=== PATIENT | male | born 1970 | race African-American/Black ===

== ENCOUNTER → 2021-05-04 02:55 | Outpatient (CLI) | payer OTHER, SELFPAY ==
[2021-05-04 18:57] LABS: SARS-CoV-2 RNA PCR Negative
== END ==
PROVIDERS: PCP Family Medicine; Visit Provider Internal Medicine Gastroenterology
DX: Z20.822 Contact with and (suspected) exposure to COVID-19 (principal)
CPT/HCPCS: C9803; U0003; U0005

== ENCOUNTER 2021-05-07 01:24 | Day surgery (SDC) | payer OTHER, SELFPAY ==
[2021-05-03 09:59] VITALS: BMI 24.8
--- NOTE | 2021-05-04 14:24 | PM.HPGS ---
History of Present Illness History of Present Illness Consent: Risks, benefits, and alternatives have been discussed and questions answered. Patient agrees to proceed with procedure. Chief complaint: hx of colon ca, neoplasm Narrative: Vazquez Tomlinson is a 51 year old male with a history of colon cancer diagnosed 2 years ago. Recently he has had severe diarrhea this is a daily occurrence for the past 2 or 3 months. About 6 months ago he began having pain in the left lower back that also involves his left lower abdomen. It is much worse when he moves, such as when he tried turning in bed to show me the source in the back. Review of Systems Review of Systems: All systems reviewed & are unremarkable except as noted in HPI and below PMFSH Past Medical History Medical History ADHD Colon cancer Smoker Social History Social History Smoking status: Light tobacco smoker Tobacco type: cigars Substance use: never Substance use type: does not use Living arrangements: with family Spiritual care concerns: No Meds Home Medications and Allergies Home Medications Medication Instructions Recorded Confirmed Type methylphenidate HCl 20 mg PO BID 05/03/21 05/03/21 History modafinil 200 mg PO DAILY 05/03/21 05/03/21 History Allergies Allergy/AdvReac Type Severity Reaction Status Date / Time No Known Allergies Allergy Verified 05/07/21 12:29 Exam Resp: Auscultation: clear to auscultation bilaterally Cardio: Rate: regular rate Rhythm: regular rhythm GI: GI Palp: Yes Soft to palpation and No Tenderness to palpation present (GI) Assessment and Plan Assessment and plan (1) Colon cancer screening: Code(s): Z12.11 - Encounter for screening for malignant neoplasm of colon Status: Acute Assessment and Plan: Colonoscopy with possible biopsy or polypectomy or cautery or injection of substances.
--- NOTE | 2021-05-07 10:58 | WPDANESEPPF ---
Anes - Initial Pre Proc Eval Procedure: Operation Date: 05/07/21 13:30 Proposed Procedures p Screening Colonoscopy - Reinaldo Morataya MD Date/Time: 05/07/21 10:58 Surgeon: Reinaldo Morataya MD Pre Op Diagnosis: hx of colon ca, neoplasm Patient Data Age: 51 Gender: M Height: 1.78 m Weight: 78.5 kg Allergies Allergy/AdvReac Type Severity Reaction Status Date / Time No Known Allergies Allergy Verified 05/07/21 12:29 Home Medications Medication Instructions Recorded Confirmed Type methylphenidate HCl 20 mg PO BID 05/03/21 05/03/21 History modafinil 200 mg PO DAILY 05/03/21 05/03/21 History Patient hx anesthesia problems: none Family hx anesthesia problems: none [facility] Past Medical History Medical History ADHD Colon cancer Smoker Social History Social History Smoking status: Light tobacco smoker Tobacco type: cigars Substance use: never Substance use type: does not use Living arrangements: with family Spiritual care concerns: No Anes - Eval Final PreProcedure Day of Procedure 05/07/21 10:58 Patient weight: normal Heart: regular rate and rhythm Lungs: clear to auscultation and normal air movement Airway: Mallampati scale class II Neurological: alert and oriented Last oral intake: >/= 8 hours ASA classification: III Emergent: no Anesthetic plan: proceed Anesthesia type and monitoring: general GIVS Informed Consent: The patient's anesthetic plan and its attendant risks and benefits were discussed with the patient/family/POA. Questions were solicited and answers provided to the satisfaction of the patient/family/POA.
[2021-05-07] MEDS: LACTATED RINGERS 1,000 ML 150 ML IV CONT (12:33)
--- NOTE | 2021-05-07 12:41 | P.PNAN_ITS ---
Anes - Initial Pre Proc Eval Procedure: Operation Date: 05/07/21 13:30 Proposed Procedures p Screening Colonoscopy - Reinaldo Morataya MD Date/Time: 05/07/21 12:41 Surgeon: Reinaldo Morataya MD Pre Op Diagnosis: hx of colon ca, neoplasm Patient Data Age: 51 Gender: M Height: 1.78 m Weight: 78.5 kg Allergies Allergy/AdvReac Type Severity Reaction Status Date / Time No Known Allergies Allergy Verified 05/07/21 12:29 Home Medications Medication Instructions Recorded Confirmed Type methylphenidate HCl 20 mg PO BID 05/03/21 05/03/21 History modafinil 200 mg PO DAILY 05/03/21 05/03/21 History Patient hx anesthesia problems: none Family hx anesthesia problems: none [facility] Past Medical History Medical History ADHD Colon cancer Smoker Social History Social History Smoking status: Light tobacco smoker Tobacco type: cigars Substance use: never Substance use type: does not use Living arrangements: with family Spiritual care concerns: No Anes - Eval Final PreProcedure Day of Procedure 05/07/21 12:41 Patient weight: normal Heart: regular rate and rhythm Lungs: clear to auscultation Airway: Mallampati scale class II Last oral intake: >/= 8 hours ASA classification: III Emergent: no Anesthetic plan: proceed Anesthesia type and monitoring: general GIVS and standard monitoring Informed Consent: The patient's anesthetic plan and its attendant risks and benefits were discussed with the patient/family/POA. Questions were solicited and answers provided to the satisfaction of the patient/family/POA.
[2021-05-07 12:46] VITALS: BP 114/67; PULSE 73; RESP 16; TEMP 36.8; O2SAT 100; BMI 23.7
[2021-05-07 13:23] VITALS: BP 88/45; PULSE 85; RESP 19; O2SAT 98
[2021-05-07 13:33] VITALS: BP 107/70; PULSE 88; RESP 16; O2SAT 100
[2021-05-07 13:43] VITALS: BP 103/59; PULSE 74; RESP 17; O2SAT 100
== END 2021-05-07 13:52 | disposition home or self-care (01) ==
PROVIDERS: PCP Family Medicine; Visit Provider Internal Medicine Gastroenterology
PROC: 0DJD8ZZ Inspection of Lower Intestinal Tract, Via Natural or Artificial Opening Endoscopic (ICD-10-PCS; CPT 45378; principal; 2021-05-07 13:30)
DX: K59.1 Functional diarrhea (principal); Z98.0 Intestinal bypass and anastomosis status; Z85.038 Personal history of other malignant neoplasm of large intestine; K52.89 Other specified noninfective gastroenteritis and colitis; F90.9 Attention-deficit hyperactivity disorder, unspecified type; F17.210 Nicotine dependence, cigarettes, uncomplicated
CPT/HCPCS: 45380; 88305; J2704; J7120

== ENCOUNTER 2021-05-09 18:33 | Emergency (ER) | payer OTHER, SELFPAY ==
--- NOTE | ~2021-05-09 | XR_ITS ---
XR chest 2V DATE: 05/09/2021 19:28 INDICATION: Pain down left arm for one day. Smoker. History of colon cancer and lung surgery. TECHNIQUE: PA and lateral views COMPARISON: 02/05/2016 PA and lateral chest FINDINGS: Surgical clips are noted in the lower medial right thorax. Normal heart size. No hilar or mediastinal enlargement. No pulmonary infiltrate or consolidation, pleural effusion or pulmonary vascular congestion or pneumo thorax is detected. IMPRESSION: No active cardiac pulmonary disease or significant change since 02/05/2016 Reviewed, dictated and finalized at location A. IMPRESSION: No active cardiac pulmonary disease or significant change since 01/23
[2021-05-09 18:43] VITALS: BP 151/83; PULSE 69; RESP 17; TEMP 36.8; O2SAT 100
--- NOTE | 2021-05-09 18:43 | ECG_ITS ---
Measurements Intervals [place] Rate: 65 P: 59 [place]: 156 QRS: 68 QRSD: 96 T: 55 QT: 369 QTc: 384 Interpretive Statements SINUS RHYTHM WITH SINUS ARRHYTHMIA NORMAL ECG Electronically Signed On 05-09-2021 20:15:24 CDT by eVrn Best D.O.
[2021-05-09 19:12] LABS: Basophils Percent Auto 0.2 % (0.2-1.2); Eosinophils Absolute Auto 0.1 K/mm3 (0-0.3); Eosinophils Percent Auto 2.2 % (0-4.4); Hematocrit 33.1 % (42.0-52.0); Hemoglobin 10.2 g/dL (14.0-18.0); Immature Granulocyte Absolute 0.01 K/mm3 (0.00-0.031); Immature Granulocyte Percent A 0.2 % (0-0.5); Immature Platelet Fraction Pct 10.7 % (0.9-11.2); Lymphocytes Absolute Auto 1.77 K/mm3 (0.9-3.2); Lymphocytes Percent Auto 38.8 % (18.3-44.2); Mean Corpuscular HGB Conc 30.8 g/dl (32-36); Mean Corpuscular Hemoglobin 27.7 pg (26-34); Mean Corpuscular Volume 89.9 fl (80-100); Mean Platelet Volume 12.9 fl (7.4-10.4); Monocytes Absolute Auto 0.3 K/mm3 (0.1-0.6); Monocytes Percent Auto 6.8 % (2.6-8.5); Neutrophils Absolute Auto 2.4 K/mm3 (1.3-6.7); Neutrophils Percent Auto 51.8 % (45.5-73.1); Platelet Count Result 152 k/mm3 (150-375); Red Blood Count 3.68 M/mm3 (4.6-6.20); Red Cell Distribution Width 17.2 % (11.5-14.5); White Blood Count 4.6 K/mm3 (4.5-10.0)
[2021-05-09 19:20] LABS: Prothrombin Time 13.5 Seconds (11.1-14.7)
[2021-05-09 19:21] LABS: Partial Thromboplastin Time 33.2 SECONDS (22.3-36.8)
[2021-05-09 19:22] LABS: Anion Gap 10 mmol/L (8-16); Blood Urea Nitrogen 9 mg/dL (9-20); Calcium 9.2 mg/dL (8.4-10.2); Carbon Dioxide 24 mmol/L (22-30); Chloride 101 mmol/L (98-107); Estimated CRCL calculation 128 ml/min; Estimated Glomerular Filt Rate > 60; Glucose 119 mg/dL (65-110); Potassium 4.2 mmol/L (3.4-5.0); Sodium 135 mmol/L (137-145)
[2021-05-09 19:34] LABS: Troponin I < 0.012 ng/mL (0.000-0.034)
[2021-05-09] MEDS: HYDROcodone/acetaminophen (*CRX) 5-325 MG TABLET 1 TAB PO (22:59)
[2021-05-09 23:09] LABS: Troponin I < 0.012 ng/mL (0.000-0.034)
--- NOTE | 2021-05-09 23:39 | ED.GENADULT ---
HPI - General Adult General Chief complaint: Extremity Injury, Upper Stated complaint: left shoulder pain Time Seen by Provider: 05/09/21 21:58 Source: patient and family Mode of arrival: ambulatory Limitations: no limitations History of Present Illness HPI narrative: 51-year-old with no major medical problems here with complaints of left upper neck and left arm pain radiating into his left forearm for past few days he denies any trauma. 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 He denies any lifting heavy objects. He denies any chest pain or shortness of breath. Onset (ago): day(s) (2) Location: upper extremity (Left upper extremity) Radiation: neck Severity: moderate Quality: aching Pain Consistency: constant Relieving factors: none Exacerbating factors: movement Associated symptoms: denies other symptoms Related Data Home Medications Medication Instructions Recorded Confirmed methylphenidate HCl 20 mg PO BID 05/03/21 05/03/21 modafinil 200 mg PO DAILY 05/03/21 05/03/21 Allergies Allergy/AdvReac Type Severity Reaction Status Date / Time No Known Allergies Allergy Verified 05/09/21 22:19 Review of Systems Review of Systems: All systems reviewed & are unremarkable except as noted in HPI and below Constitutional: Constitutional: Reports no additional constitutional complaints Eyes: Eyes: Reports no additional eye complaints ENT: Reports system reviewed and no additional complaints, except as documented Cardiovascular: Cardiovascular: Reports no additional cardiovascular complaints Respiratory: Respiratory: Reports no additional respiratory complaints Gastrointestinal: Gastrointestinal: Reports no additional gastrointestinal complaints Musculoskeletal: Musculoskeletal: Reports as per HPI Integumentary/Breasts: Skin/Breast: Reports system reviewed and no additional complaints, except as docu PMFSH Past Medical History Medical History ADHD Colon cancer Smoker Social History Social History Smoking status: Light tobacco smoker Tobacco type: cigars Substance use: never Substance use type: does not use Spiritual care concerns: No Exam Narrative: GENERAL: Well-appearing, well-nourished, and in no acute distress. HEAD: Normocephalic, atraumatic. EYES: PERRLA and EOMI. NECK: Supple. CHEST: Clear to auscultation. No respiratory distress. HEART: Regular rate and rhythm. No murmur heard. Normal peripheral pulses. ABDOMEN: Soft, nontender, nondistended, normal active bowel sounds. EXTREMITIES: Normal range of motion. No edema. Painful range of motion in the left shoulder. He has significant tenderness in the left trapezius area. SKIN: Warm, dry, no rash. NEURO: No focal deficits. Alert and oriented x3. PSYCH: Normal mood and affect. Course Course Emergency Course: Patient states his pain is much resolved after the pain medication. I informed him about his lab work, EKG and chest x-ray findings. At this time his pain is most likely musculoskeletal. Advised him to follow-up with his primary doctor. Vital Signs Vital signs: Vital Signs Temperature 36.8 C 05/09/21 18:43 Pulse Rate 69 05/09/21 18:43 Respiratory Rate 17 05/09/21 18:43 Blood Pressure 151/83 H 05/09/21 18:43 Pulse Oximetry 100 05/09/21 18:43 Temperature 36.8 C 05/09/21 18:43 Pulse Rate 69 05/09/21 18:43 Respiratory Rate 17 05/09/21 18:43 Blood Pressure 151/83 H 05/09/21 18:43 Pulse Oximetry 100 05/09/21 18:43 Medical Decision Making Vital Signs Vital Signs: Vital Signs Temperature 36.8 C 05/09/21 18:43 Pulse Rate 69 05/09/21 18:43 Respiratory Rate 17 05/09/21 18:43 Blood Pressure 151/83 H 05/09/21 18:43 Pulse Oximetry 100 05/09/21 18:43 Temperature 36.8 C 05/09/21 18:43 Pulse Rate 69 05/09/21 18:43 Respiratory Rate 17 05/09/21 18:43 Blood Pressure 151/83 H 05/09/21 18:43 Pulse Oximetry 100
[2021-05-10 00:12] VITALS: BP 150/85; PULSE 80; RESP 16; O2SAT 100
== END 2021-05-10 00:08 | disposition home or self-care (01) ==
PROVIDERS: Emergency Medicine; Emergency Provider Family Medicine; PCP Family Medicine
DX: M54.10 Radiculopathy, site unspecified (principal); F90.9 Attention-deficit hyperactivity disorder, unspecified type; Z85.038 Personal history of other malignant neoplasm of large intestine; F17.290 Nicotine dependence, other tobacco product, uncomplicated
CPT/HCPCS: 36415; 71046; 80048; 84484; 85025; 85055; 85610; 85730; 93005; 99284; A9270

== ENCOUNTER 2021-05-22 19:49 | Emergency (ER) | payer OTHER, SELFPAY ==
--- NOTE | 2021-05-22 19:57 | PC.NURSE ---
Call for triage, no answer.
[2021-05-22 20:21] VITALS: BP 150/70; PULSE 68; RESP 18; TEMP 37; O2SAT 100
--- NOTE | 2021-05-22 20:31 | ECG_ITS ---
Measurements Intervals [place] Rate: 59 P: 50 DE: 161 QRS: 61 QRSD: 95 T: 59 QT: 383 QTc: 382 Interpretive Statements SINUS BRADYCARDIA BORDERLINE ECG Electronically Signed On 05-23-2021 6:53:35 CDT by Vern Best D.O.
[2021-05-22 20:58] LABS: Basophils Percent Auto 0.5 % (0.2-1.2); Eosinophils Absolute Auto 0.1 K/mm3 (0-0.3); Eosinophils Percent Auto 2.7 % (0-4.4); Hematocrit 34.6 % (42.0-52.0); Hemoglobin 10.9 g/dL (14.0-18.0); Immature Granulocyte Absolute 0.01 K/mm3 (0.00-0.031); Immature Granulocyte Percent A 0.2 % (0-0.5); Immature Platelet Fraction Pct 9.2 % (0.9-11.2); Lymphocytes Absolute Auto 1.75 K/mm3 (0.9-3.2); Lymphocytes Percent Auto 42.8 % (18.3-44.2); Mean Corpuscular HGB Conc 31.5 g/dl (32-36); Mean Corpuscular Hemoglobin 28.2 pg (26-34); Mean Corpuscular Volume 89.6 fl (80-100); Mean Platelet Volume 12.9 fl (7.4-10.4); Monocytes Absolute Auto 0.3 K/mm3 (0.1-0.6); Monocytes Percent Auto 7.8 % (2.6-8.5); Neutrophils Absolute Auto 1.9 K/mm3 (1.3-6.7); Platelet Count Result 156 k/mm3 (150-375); Red Blood Count 3.86 M/mm3 (4.6-6.20); Red Cell Distribution Width 17.7 % (11.5-14.5); White Blood Count 4.1 K/mm3 (4.5-10.0)
[2021-05-22 21:10] LABS: Alanine Aminotransferase 45 U/L (4-50); Albumin Level 4.7 g/dL (3.5-5.1); Alkaline Phosphatase 84 U/L (38-126); Anion Gap 7 mmol/L (8-16); Aspartate Amino Transferase 31 U/L (17-59); Bilirubin,Total 0.3 mg/dL (0.2-1.3); Blood Urea Nitrogen 10 mg/dL (9-20); Calcium 9.3 mg/dL (8.4-10.2); Carbon Dioxide 26 mmol/L (22-30); Chloride 106 mmol/L (98-107); Estimated CRCL calculation 98 ml/min; Estimated Glomerular Filt Rate > 60; Glucose 109 mg/dL (65-110); Lipase 158 U/L (23-300); Potassium 4.3 mmol/L (3.4-5.0); Sodium 139 mmol/L (137-145)
[2021-05-22 21:20] LABS: Troponin I < 0.012 ng/mL (0.000-0.034)
[2021-05-22 21:21] LABS: Platelet Estimate Adequate (Adequate)
[2021-05-22 21:22] LABS: Anisocytosis 2+ (NORMAL); Hypochromasia 1+ (NORMAL)
[2021-05-22 21:40] LABS: Add Urine Microscopic? YES; Appearance Urine Clear (Clear); Bacteria Urine Trace /hpf; Bilirubin Urine Negative (Negative); Blood Urine Negative (Negative); Color Urine Yellow (Yellow); Glucose Urine UA Negative (Negative); Ketones Urine Negative (Negative); Leukocyte Esterase Ur Negative LEU/UL (Negative); Nitrate Urine Negative (Negative); Protein Urine Negative (Negative); Specific Grav Ur 1.017 (1.001-1.035); WBC Urine 0-3 /hpf
[2021-05-22 22:34] VITALS: BP 123/76; PULSE 56; RESP 18; O2SAT 100
--- NOTE | 2021-05-23 00:40 | ED.DIZZY ---
HPI - Dizziness General Chief Complaint: Dizziness Stated Complaint: dizziness Source: patient, family and RN notes reviewed Mode of arrival: ambulatory Limitations: no limitations History of Present Illness HPI Narrative: Patient is 51 years old -[place] male presented to the ED with his complaining of dizziness, lightheadedness for the last 2 days. Patient also complaining of unsteady gait, loss of balance and fell once or twice over the last 48 hours, frontal pressure, feeling weird, unfocused and hard to describe feeling inside his head. Related Data Home Medications Medication Instructions Recorded Confirmed methylphenidate HCl 20 mg PO BID 05/03/21 05/03/21 modafinil 200 mg PO DAILY 05/03/21 05/03/21 Allergies Allergy/AdvReac Type Severity Reaction Status Date / Time No Known Allergies Allergy Verified 05/09/21 22:19 Review of Systems Review of Systems: CONSTITUTIONAL: Denies fever, chills, or sweats. EYES: Denies visual changes, redness, or discharge. ENT: Denies rhinorrhea, congestion, sore throat, or otalgia. CARDIOVASCULAR: Denies chest pain, palpitations, or edema. RESPIRATORY: Denies cough or dyspnea. GASTROINTESTINAL: Denies abdominal pain, nausea, vomiting, or diarrhea. GENITOURINARY: Denies dysuria or hematuria. SKIN: Denies rash or itching. MUSCULOSKELETAL: Denies back pain, joint pain, or myalgia. NEUROLOGIC: Denies headache, numbness, or weakness. PSYCHIATRIC: Denies anxiety or depression. PMFSH Past Medical History Medical History ADHD Colon cancer Smoker Social History Social History Smoking status: Light tobacco smoker Tobacco type: cigars Substance use: never Substance use type: does not use Spiritual care concerns: No Exam Narrative: General appearance: Well-developed, well-nourished Skin: Normal color Head: Normocephalic, nontraumatic Eyes: Clear conjunctiva ENT: Oropharynx normal, ears normal, nose normal Neck: Supple, nontender Chest and respiratory: Airway patent, no respiratory distress, no accessory muscle use Heart: Regular rate/rhythm Abdomen: Soft, nontender, no organomegaly, quiet bowel sounds Vascular: Normal peripheral pulses, normal capillary refill. Musculoskeletal: Normal range of motion, nontender back Neurologic: Alert and oriented ?3, Neuro: General: oriented to person, oriented to place, oriented to time, patient oriented x3, moves all extremities, no meningeal signs, no focal motor deficits and CN's II-XI intact bilaterally Cognition (Neuro): normal cognition Speech: normal speech Gait exam (Neuro): Ataxic gait present Course Course Emergency Course: Stable Vital Signs Vital signs: Vital Signs Temperature 37.0 C 05/22/21 20:21 Pulse Rate 68 05/22/21 20:21 Respiratory Rate 18 05/22/21 20:21 Blood Pressure 150/70 H 05/22/21 20:21 Pulse Oximetry 100 05/22/21 20:21 Temperature 37.0 C 05/22/21 20:21 Pulse Rate 56 L 05/22/21 22:34 Respiratory Rate 18 05/22/21 22:34 Blood Pressure 123/76 05/22/21 22:34 Pulse Oximetry 100 05/22/21 22:34 MDM - Dizziness MDM Narrative Medical decision making narrative: Patient presents with dizziness, head pressure, unsteady gait. Differential diagnosis as below. Labs, CT head ordered. Further plan to follow Patient declined CAT scan of the head, and signed AGAINST MEDICAL ADVICE. Differential Diagnosis Differential diagnosis: Likely vertebral basilar insufficiency, cerebrovascular accident and other (Intracranial hemorrhage, intracranial tumor) Lab Data Result diagrams: 05/22/21 20:47 05/22/21 20:47
[2021-05-23 00:44] LABS: CRP < 0.5 mg/dL (<1.0)
--- NOTE | 2021-05-23 01:04 | PC.NURSE ---
pt refused ct, dr dove @ bedside explain the risk of a.m.a ,pt aware of possible head bleed and or stoke , which can lead to . pt still refuse head ct, pt wants a work noted ,in which gave pt request.
--- NOTE | 2021-05-23 01:09 | PC.NURSE ---
produce inspector at bedside to have the pt sign ama paperwork. pt verbalized that he did not understand why we would not be responsible for him leaving and things that could happen to him indefinitely if he signed out ama. Charge explained again and patient continued to get agitated. Pt carlos verbalized that she understood and said sorry and patient signed ama paperwork at this time.
[2021-05-23 01:12] LABS: Erythrocyte Sedimentation Rate 15 mm/hr (0-20)
== END 2021-05-23 01:12 | disposition left against medical advice (07) ==
PROVIDERS: Emergency Provider Emergency Medicine; PCP Family Medicine
DX: R42 Dizziness and giddiness (principal); R51.9 Headache, unspecified; F90.9 Attention-deficit hyperactivity disorder, unspecified type; Z85.038 Personal history of other malignant neoplasm of large intestine; F17.290 Nicotine dependence, other tobacco product, uncomplicated; R00.1 Bradycardia, unspecified
CPT/HCPCS: 36415; 80053; 81001; 83690; 84484; 85025; 85055; 85652; 86140; 93005; 99284

== ENCOUNTER 2022-02-02 16:26 | Emergency (ER) | payer OTHER, SELFPAY ==
[2022-02-02 16:28] VITALS: BP 150/88; PULSE 92; RESP 16; TEMP 36.5; O2SAT 100
--- NOTE | 2022-02-02 17:12 | ED.WOUNDLAC ---
HPI - Wound/Laceration General Chief Complaint: Wound/Laceration Stated Complaint: cut finger on glass Time Seen by Provider: 02/02/22 16:42 History of Present Illness HPI narrative: 51-year-old male presents here after he accidentally cut his finger on a Pyrex glass, it was bleeding so he came to the hospital, after holding some pressure on he has stopped, denies any injuries anywhere else no numbness or tingling. Related Data Home Medications Medication Instructions Recorded Confirmed methylphenidate HCl 20 mg tablet 20 mg PO BID 05/03/21 05/03/21 modafinil 200 mg tablet 200 mg PO DAILY 05/03/21 05/03/21 Allergies Allergy/AdvReac Type Severity Reaction Status Date / Time No Known Allergies Allergy Verified 02/02/22 16:30 Review of Systems Review of Systems: M/S: No joint pain. SKIN: Laceration to right ring finger PMFSH Past Medical History Medical History ADHD Colon cancer Smoker Social History Social History Smoking status: Light tobacco smoker Tobacco type: cigars Substance use: never Substance use type: does not use Spiritual care concerns: No Exam Narrative: EXAMINATION OF ORGAN SYSTEMS/BODY AREAS: Constitutional: Vital signs per nursing GENERAL:[No acute distress, non-toxic appearing.] HEAD: Normal with no signs of head trauma. LUNGS: Nonlabored breathing. HEART: [Regular rate and rhythm] EXT: Normal range of motion SKIN: 1 cm linear lac to pad of right ring finger NEURO: [Alert and oriented x 3. No gross focal sensory or strength deficits.] PSYCH: Normal affect Course Vital Signs Vital signs: Vital Signs Temperature 97.7 F 02/02/22 16:28 Pulse Rate 92 02/02/22 16:28 Respiratory Rate 16 02/02/22 16:28 Blood Pressure 150/88 H 02/02/22 16:28 Pulse Oximetry 100 02/02/22 16:28 Oxygen Delivery Room Air 02/02/22 16:28 Temperature 97.7 F 02/02/22 16:28 Pulse Rate 92 02/02/22 16:28 Respiratory Rate 16 02/02/22 16:28 Blood Pressure 150/88 H 02/02/22 16:28 Pulse Oximetry 100 02/02/22 16:28 Oxygen Delivery Room Air 02/02/22 16:28 Procedures Laceration Laceration 1: Date: 02/02/22 Site: hand Side (If applicable): right Size (cm): 1 Description: linear Depth: simple, single layer Pre-repair: wound explored and irrigated ====== Skin Level ====== Skin layer closed with: vicryl and steri strips Size (cm): 4-0 Number of sutures: 1 Technique: simple, interrupted ====== Subcutaneous Layer ====== ====== Muscle Layer ====== ====== Tendon Layer ====== Nerve Block Nerve Block 1: Nerve block date: 02/02/22 Nerve block time: 18:50 Local Anesthetic: lidocaine 1% and with epi Amount of anesthesia used (mL): 3 Side: right Nerve Blocks: digital Procedure Successful: Yes Patient Tolerated Procedure: well Complications: none MDM - Wound/Laceration MDM Narrative Medical decision making narrative: 51-year-old male presenting with laceration to the right ring finge not actively bleeding, it is slightly gaping so I did feel he would benefit from closure especially given the location of the injury, lack repaired without incident see procedure note after digital block, he is given return precautions and follow-up with his primary care doctor, stable for discharge after tetanus shot. Discharge Plan Discharge Clinical Impression: Laceration Patient Disposition: Home, Self-Care Condition: Stable Instructions: Antibiotic Form, Care For Your Stitches (ED), Laceration (ED) Additional Instructions: You can follow up with your doctor. Prescriptions: No Action methylphenidate HCl 20 mg tablet 20 mg PO BID modafinil 200 mg tablet 200 mg PO DAILY tramadol [Ultram] 50 mg tablet 50 mg PO Q6H PRN (Reason: pain) Qty: 20 0RF
--- NOTE | 2022-02-02 17:19 | PC.NURSE ---
pt refusing tetanus shot. educated pt on the importance of receiving a tetanus shot. pt still refusing medication.
== END 2022-02-02 17:27 | disposition home or self-care (01) ==
PROVIDERS: Emergency Provider Emergency Medicine; PCP Family Medicine
DX: S61.214A Laceration without foreign body of right ring finger without damage to nail, initial encounter (principal); Z85.038 Personal history of other malignant neoplasm of large intestine; F90.9 Attention-deficit hyperactivity disorder, unspecified type; F17.290 Nicotine dependence, other tobacco product, uncomplicated; W26.8XXA Contact with other sharp object(s), not elsewhere classified, initial encounter
CPT/HCPCS: 12001; 90471; 99282

== ENCOUNTER 2022-04-08 08:53 | Outpatient (CLI) | payer OTHER, SELFPAY ==
--- NOTE | ~2022-04-08 | MR_ITS ---
EXAMINATION: MR lumbar spine wo/w con DATE: 04/08/2022 09:49 INDICATION: Low back pain. Lumbar radiculopathy. TECHNIQUE: Magnetic resonance imaging (MRI) of the lumbar spine was performed without and with 17 mL MultiHance intravenous contrast. COMPARISON: None FINDINGS: Bone alignment is normal. Vertebral body heights are normal. Intervertebral disc heights ar e normal. The distal spinal cord signal intensity is normal. The conus medullaris is at L2. There is a 1.9 cm cyst in right kidney. The following disc levels are specifically discussed: L1-L2: The disc does not extend beyond the endplate margin. There is mild bilateral facet joint osteo arthritis. There is no neural foraminal stenosis. There is no central canal stenosis. L2-L3: The disc does not extend beyond the endplate margin. There is mild bilateral facet joint osteo arthritis. There is no neural foraminal stenosis. There is no central canal stenosis. L3-L4: The disc is bulging. There is moderate right and severe left facet joint osteoarthritis. There is mild left neural foraminal stenosis. There is no central canal stenosis. L4-L5: The disc is bulging. There is moderate bilateral facet joint osteoarthritis. There is moderate bilateral neural foraminal stenosis. There is mild central canal stenosis. L5-S1: The disc does not extend beyond the endplate margin. There is no facet joint osteoarthritis. T here is no neural foraminal stenosis. There is no central canal stenosis. IMPRESSION: 1. Moderate bilateral neural foraminal stenosis at L4-L5. Otherwise mild lumbar spondylosis. Reviewed, dictated and finalized at location A.
== END 2022-04-08 08:54 ==
LOC: MICIMG 08:55
PROVIDERS: PCP Family Medicine; Visit Provider Internal Medicine Medical Oncology
DX: M47.26 Other spondylosis with radiculopathy, lumbar region (principal)
CPT/HCPCS: 72158; A9577

== ENCOUNTER 2022-05-10 15:29 | Emergency (ER) | payer OTHER, SELFPAY ==
--- NOTE | ~2022-05-10 | US_ITS ---
EXAMINATION: US venous doppler [facility] DATE: 05/10/2022 17:03 INDICATION: Left lower limb pain. TECHNIQUE: Grayscale ultrasound images without and with compression and Doppler ultrasound images of the left lower extremity veins were obtained. COMPARISON: None. FINDINGS: The visualized portions of left common femoral vein, profunda (deep) femoral vein, femoral vein, popl iteal vein, peroneal veins, posterior tibial veins, and greater saphenous vein outflow are patent. Th ere is a moderate-sized Jones's cyst. IMPRESSION: 1. No deep venous thrombosis. 2. Moderate-sized left Jones's cyst. Reviewed, dictated and finalized at location A.
--- NOTE | ~2022-05-10 | XR_ITS ---
EXAMINATION: XR knee LT min 4V DATE: 05/10/2022 16:01 INDICATION: Left knee tightness. TECHNIQUE: 4 views of left knee were obtained. COMPARISON: None. FINDINGS: Bone alignment is normal. No fracture. There is mild osteoarthritis of lateral compartment characterized by tiny osteophytes. No knee joint effusion. IMPRESSION: 1. Mild left knee osteoarthritis. Reviewed, dictated and finalized at location A.
[2022-05-10 15:43] VITALS: BP 129/72; PULSE 76; RESP 16; TEMP 36.9; O2SAT 100
--- NOTE | 2022-05-10 16:33 | ED.EXTPRO ---
HPI - Extremity Problem General Chief complaint: Extremity Problem,Nontraumatic Stated complaint: left knee swelling Time Seen by Provider: 05/10/22 16:26 History of Present Illness HPI Narrative: 52-year-old male presents to the emergency room today for evaluation for tightness behind his thigh and knee on his left leg. He says that he started noticing this yesterday and today it is starting to hurt a little bit. He denies having pain in his knee joint itself. Its just behind his knee. No lower extremity swelling. No numbness or tingling. Denies any injury to his knee. Related Data Home Medications Medication Instructions Recorded Confirmed methylphenidate HCl 20 mg tablet 20 mg PO BID 05/03/21 05/03/21 modafinil 200 mg tablet 200 mg PO DAILY 05/03/21 05/03/21 Allergies Allergy/AdvReac Type Severity Reaction Status Date / Time No Known Allergies Allergy Verified 02/02/22 16:30 Review of Systems Review of Systems: CONSTITUTIONAL: Denies fever, chills, or sweats. EYES: Denies visual changes, redness, or discharge. ENT: Denies rhinorrhea, congestion, sore throat, or otalgia. CARDIOVASCULAR: Denies chest pain, palpitations, or edema. RESPIRATORY: Denies cough or dyspnea. GASTROINTESTINAL: Denies abdominal pain, nausea, vomiting, or diarrhea. GENITOURINARY: Denies dysuria or hematuria. SKIN: Denies rash or itching. MUSCULOSKELETAL: As per HPI NEUROLOGIC: Denies headache, numbness, dizziness, or weakness. PSYCHIATRIC: Denies anxiety or depression. PMFSH Past Medical History Medical History ADHD Colon cancer Smoker Social History Social History Smoking status: Light tobacco smoker Tobacco type: cigars Substance use: never Substance use type: does not use Spiritual care concerns: No Exam Narrative: GENERAL: Well-appearing, well-nourished, and in no acute distress. HEAD: Normocephalic, atraumatic. NECK: Supple. No adenopathy or masses. No carotid bruits or JVD CHEST: Clear to auscultation. No respiratory distress. No wheezes rales or rhonchi HEART: Regular rate and rhythm. No murmur heard. Normal peripheral pulses. ABDOMEN: Soft, nontender, nondistended, normal active bowel sounds. EXTREMITIES: Normal range of motion. No edema. SKIN: Warm, dry, no rash. NEURO: No focal deficits. Alert and oriented x3. PSYCH: Normal mood and affect. Course Vital Signs Vital signs: Vital Signs Temperature 36.9 C 05/10/22 15:43 Pulse Rate 76 05/10/22 15:43 Respiratory Rate 16 05/10/22 15:43 Blood Pressure 129/72 05/10/22 15:43 Pulse Oximetry 100 05/10/22 15:43 Oxygen Delivery Room Air 05/10/22 15:43 Temperature 36.9 C 05/10/22 15:43 Pulse Rate 76 05/10/22 15:43 Respiratory Rate 16 05/10/22 15:43 Blood Pressure 129/72 05/10/22 15:43 Pulse Oximetry 100 05/10/22 15:43 Oxygen Delivery Room Air 05/10/22 15:43 MDM - Extremity (Nontraumatic) Imaging Data Radiologist's impression: EXAMINATION: US venous doppler LE LT DATE: 05/10/2022 17:03 INDICATION: Left lower limb pain. TECHNIQUE: Grayscale ultrasound images without and with compression and Doppler ultrasound images of the left lower extremity veins were obtained. COMPARISON: None. FINDINGS: The visualized portions of left common femoral vein, profunda (deep) femoral vein, femoral vein, popliteal vein, peroneal veins, posterior tibial veins, and greater saphenous vein outflow are patent. There is a moderate-sized Jones's cyst. IMPRESSION: 1.? No deep venous thrombosis. 2. Moderate-sized left Jones's cyst. Ordering Physician: Anastasia Wolfe MD Date of Service: 05/10/22 Procedure(s): XR knee LT min 4V Accession Number(s): [id number] cc: Lalita, Tu Blackwell MD; Anastasia Wolfe MD~ EXAMINATION: XR knee LT min 4V DATE: 05/10/2022 16:01 INDICATION: Left knee tightness. TECHNIQUE: 4 views of left knee were obtain
== END 2022-05-10 17:46 | disposition home or self-care (01) ==
PROVIDERS: Emergency Provider Nurse Practitioner Family; PCP Family Medicine
DX: M71.22 Synovial cyst of popliteal space [Baker], left knee (principal); F90.9 Attention-deficit hyperactivity disorder, unspecified type; F17.290 Nicotine dependence, other tobacco product, uncomplicated
CPT/HCPCS: 73564; 93971; 99284

== ENCOUNTER 2022-07-15 12:58 | Outpatient (CLI) | payer OTHER, SELFPAY ==
[2022-07-25 15:46] LABS: Calprotectin, Stool 11 mcg/g
== END 2022-07-15 12:59 | disposition home or self-care (01) ==
LOC: ANHLAB 12:59
PROVIDERS: PCP Family Medicine; Visit Provider Nurse Practitioner Family
DX: R19.7 Diarrhea, unspecified (principal)
CPT/HCPCS: 83993

== ENCOUNTER 2022-07-17 16:47 | Outpatient (NON) | payer OTHER, SELFPAY ==
[2022-07-17 17:37] LABS: Appearance Synovial Fluid Clear (Clear); Color Synovial Fluid Yellow (Colorless); Crystals Synovial Fluid None Seen (None Seen); Neutrophils Synovial Fluid 0 % (0-25); Nucleated Cell Synovial Fluid 61 /uL (0-200); RBC Synovial Fluid 130 /uL (0-0); Source Synovial Fluid Synovial fluid
[2022-07-17 17:38] LABS: Lymphocytes Synovial Fluid 43 %; Monocytes Synovial Fluid 49 %; Other Cells Synovial Fluid 8 %
== END 2022-07-17 16:48 | disposition home or self-care (01) ==
LOC: ANHLAB 16:50
PROVIDERS: PCP Family Medicine; Visit Provider Orthopaedic Surgery
DX: M25.562 Pain in left knee (principal); M25.462 Effusion, left knee
CPT/HCPCS: 89051; 89060

== ENCOUNTER 2022-08-05 01:41 | Day surgery (SDC) | payer OTHER, SELFPAY ==
[2022-07-25 13:23] VITALS: BMI 25.9
[2022-08-05 13:08] VITALS: BP 132/74; PULSE 67; RESP 20; TEMP 36.6; O2SAT 100
--- NOTE | 2022-08-05 13:19 | PM.HPGS ---
History of Present Illness History of Present Illness Consent: Risks, benefits, and alternatives have been discussed and questions answered. Patient agrees to proceed with procedure. Chief complaint: rectal bleed Narrative: Vazquez Tomlinson is a 52 year old male Was referred because of persistent rectal bleeding. The blood is generally bright red. He also has chronic loose stools, Full recently they have not been as bad. In the past we had advised to try Imodium but he was afraid that might cause constipation. He has history of colorectal cancer having had a previous right colectomy for that. One year ago, to investigate his diarrhea, a colonoscopy revealed no mucosal changes but biopsies showed: A. RANDOM COLON, ENDOSCOPIC BIOPSY: - NONSPECIFIC MILD CHRONIC COLITIS WITH DISTORTION OF CRYPT ARCHITECTURE. PMFSH Past Medical History Medical History ADHD Anemia assoc w/anaplastic large cell lymphoma txd w/erythropoietin Colon cancer Smoker Social History Social History Smoking status: Never smoker Tobacco type: cigars Alcohol intake: former Substance use: never Substance use type: does not use Living arrangements: with family Spiritual care concerns: No Meds Home Medications and Allergies Home Medications Medication Instructions Recorded Confirmed Type methylphenidate HCl 20 mg tablet 20 mg PO BID 05/03/21 07/25/22 History Allergies Allergy/AdvReac Type Severity Reaction Status Date / Time No Known Allergies Allergy Verified 08/05/22 13:00 Vital Signs Vital Signs - 24 hr 08/05/22 13:08 Temperature 36.6 C Pulse Rate 67 Respiratory Rate 20 Blood Pressure 132/74 Pulse Oximetry 100 Oxygen Delivery Room Air Assessment and Plan Assessment and plan (1) Rectal bleeding: Code(s): K62.5 - Hemorrhage of anus and rectum Status: Acute
[2022-08-05] MEDS: LACTATED RINGERS 1,000 ML 150 ML IV CONT (13:22)
--- NOTE | 2022-08-05 13:44 | P.PNAN_ITS ---
Anes - Initial Pre Proc Eval Procedure: Operation Date: 08/05/22 13:30 Proposed Procedures p Colonoscopy - Reinaldo Morataya MD Date/Time: 08/05/22 13:44 Surgeon: Reinaldo Morataya MD Pre Op Diagnosis: rectal bleed Patient Data Age: 52 Gender: M Height: 1.78 m Weight: 82 kg Last Vital Signs Temp 36.6 C 08/05/22 13:08 Pulse 67 08/05/22 13:08 Resp 20 08/05/22 13:08 BP 132/74 08/05/22 13:08 Pulse Ox 100 08/05/22 13:08 O2 Del Method Room Air 08/05/22 13:08 Allergies Allergy/AdvReac Type Severity Reaction Status Date / Time No Known Allergies Allergy Verified 08/05/22 13:00 Home Medications Medication Instructions Recorded Confirmed Type methylphenidate HCl 20 mg tablet 20 mg PO BID 05/03/21 07/25/22 History Patient hx anesthesia problems: none Family hx anesthesia problems: none Results Review: All pre-operative results and documents have been reviewed as part of the pre- operative evaluation. PMFSH Past Medical History Medical History ADHD Anemia assoc w/anaplastic large cell lymphoma txd w/erythropoietin Colon cancer Smoker Social History Social History Smoking status: Never smoker Tobacco type: cigars Alcohol intake: former Substance use: never Substance use type: does not use Living arrangements: with family Spiritual care concerns: No Anes - Eval Final PreProcedure Day of Procedure 08/05/22 13:44 Patient weight: normal Heart: regular rate and rhythm Lungs: decreased breath sounds Airway: Mallampati scale class III Neurological: alert and oriented Last oral intake: >/= 8 hours ASA classification: III Emergent: no Anesthetic plan: proceed Anesthesia type and monitoring: general GIVS and standard monitoring Results Review: All pre-operative results and documents have been reviewed as part of the pre- operative evaluation. Informed Consent: The patient's anesthetic plan and its attendant risks and benefits were d iscussed with the patient/family/POA. Questions were solicited and answers provided to the satisfaction of the patient/family/POA.
[2022-08-05 14:17] VITALS: BP 86/50; PULSE 84; RESP 16; O2SAT 99
[2022-08-05 14:27] VITALS: BP 113/71; PULSE 72; RESP 23; O2SAT 100
[2022-08-05 14:37] VITALS: BP 115/72; PULSE 52; RESP 14; O2SAT 100
== END 2022-08-05 14:45 | disposition home or self-care (01) ==
PROVIDERS: PCP Family Medicine; Visit Provider Internal Medicine Gastroenterology
PROC: 0DJD8ZZ Inspection of Lower Intestinal Tract, Via Natural or Artificial Opening Endoscopic (ICD-10-PCS; CPT 45378; principal; 2022-08-05 13:30)
DX: K62.5 Hemorrhage of anus and rectum (principal); K64.8 Other hemorrhoids; K62.1 Rectal polyp; Z98.0 Intestinal bypass and anastomosis status; Z85.038 Personal history of other malignant neoplasm of large intestine; Z90.49 Acquired absence of other specified parts of digestive tract; F90.9 Attention-deficit hyperactivity disorder, unspecified type; Z85.72 Personal history of non-Hodgkin lymphomas; Z87.19 Personal history of other diseases of the digestive system
CPT/HCPCS: 45378; 88305; J2704; J7120

== ENCOUNTER 2022-08-23 10:43 | Emergency (ER) | payer OTHER, SELFPAY ==
[2022-08-23 10:54] VITALS: BP 147/89; PULSE 98; RESP 16; TEMP 36.8; O2SAT 99
[2022-08-23 10:55] VITALS: BP 147/89; PULSE 98; RESP 16; TEMP 36.8; O2SAT 99
--- NOTE | 2022-08-23 11:07 | ED.URI ---
HPI - URI/Sore Throat General Chief Complaint: Upper Respiratory Infection Stated Complaint: Weakness/Sore Throat Time Seen by Provider: 08/23/22 11:08 Source: patient Mode of arrival: ambulatory Limitations: no limitations History of Present Illness HPI Narrative: 52-year-old male presents with complaint of fatigue, low-grade fever, sore throat, head congestion, mild cough for 2 days. Denies chest pain and shortness of breath. No nausea vomiting diarrhea. Did Home COVID test yesterday that was negative. ambulatory with steady gait. All systems reviewed and negative except as noted above. Related Data Home Medications Medication Instructions Recorded Confirmed methylphenidate HCl 20 mg tablet 20 mg PO BID 05/03/21 07/25/22 cholecalciferol (vitamin D3) 1,250 08/23/22 mcg (50,000 unit) capsule Allergies Allergy/AdvReac Type Severity Reaction Status Date / Time No Known Allergies Allergy Verified 08/23/22 10:54 Review of Systems Review of Systems: CONSTITUTIONAL: Reports fever, chills, or sweats. EYES: Denies visual changes, redness, or discharge. ENT: reports rhinorrhea, congestion, sore throat. Denies otalgia. CARDIOVASCULAR: Denies chest pain, palpitations, or edema. RESPIRATORY: reports cough. Deniesdyspnea. GASTROINTESTINAL: Denies abdominal pain, nausea, vomiting, or diarrhea. GENITOURINARY: Denies dysuria or hematuria. SKIN: Denies rash or itching. MUSCULOSKELETAL: Denies back pain, joint pain, or myalgia. NEUROLOGIC: Denies headache, numbness, or weakness. PSYCHIATRIC: Denies anxiety or depression. All other systems reviewed are negative, except as documented in HPI. PMFSH Past Medical History Medical History ADHD Anemia assoc w/anaplastic large cell lymphoma txd w/erythropoietin Colon cancer Smoker Social History Social History Smoking status: Never smoker Tobacco type: cigars Alcohol intake: former Substance use: never Substance use type: does not use Spiritual care concerns: No Comments At time of signature, agree with nursing past medical, surgical, social and family history. There is no relevant family history pertinent to the presenting complaint. Exam Narrative: GENERAL: This is a well-nourished, well-developed patient, in no apparent distress. HEAD: normocephalic, atraumatic. EYES: PERRL. Sclera clear/white. Vision is grossly intact. EARS: External ears normal, auditory canals clear and without drainage, TMs normal without perforation. Hearing grossly intact. NOSE: External nose normal with clear nasal drainage. THROAT: Mucous membranes moist, posterior pharynx clear. NECK: Neck supple, non-tender without lymphadenopathy, masses or thyromegaly. CARDIOVASCULAR: Regular rate and rhythm without murmurs, gallops, or rubs. RESPIRATORY: Clear to auscultation. Breath sounds equal bilaterally. No wheezes, rales, or rhonchi. SKIN: warm, Dry, intact with no suspicious lesions or rash, good texture and turgor. NEURO: awake, alert, and oriented to person, place and time. There were no obvious focal neurologic abnormalities. EXTREMITIES: No joint tenderness, effusion, or edema noted. Course Course Level of Care: Express Care Visit Vital Signs Vital signs: Vital Signs Temperature 36.8 C 08/23/22 10:54 Pulse Rate 98 08/23/22 10:54 Respiratory Rate 16 08/23/22 10:54 Blood Pressure 147/89 H 08/23/22 10:54 Pulse Oximetry 99 08/23/22 10:54 Oxygen Delivery Room Air 08/23/22 10:54 Temperature 36.8 C 08/23/22 10:55 Pulse Rate 98 08/23/22 10:55 Respiratory Rate 16 08/23/22 10:55 Blood Pressure 147/89 H 08/23/22 10:55 Pulse Oximetry 99 08/23/22 10:55 Oxygen Delivery Room Air 08/23/22 10:55 Reviewed MDM - URI/Sore Throat MDM Narrative Medical decision making narrative: negative influenza test. Recommend patient take an other home covid test in 2 days due
== END 2022-08-23 11:38 | disposition home or self-care (01) ==
PROVIDERS: Emergency Provider Nurse Practitioner Family; PCP Family Medicine
DX: B34.9 Viral infection, unspecified (principal); F90.9 Attention-deficit hyperactivity disorder, unspecified type; Z85.038 Personal history of other malignant neoplasm of large intestine
CPT/HCPCS: 87804; 99213; G0463

== ENCOUNTER 2024-05-03 10:57 | Emergency (ER) | payer OTHER, SELFPAY ==
[2024-05-03] VITALS (13 sets, daily range): BP systolic 137–163; BP diastolic 85–95; PULSE 61–80; RESP 12–17; TEMP 36.6; O2SAT 98–100
--- NOTE | ~2024-05-03 | XR_ITS ---
XR chest 2V Ordering provider: Christiano Buck MD History: 54 years Male with . chest pain . Comparison: May 09, 2021 FINDINGS: MEDIASTINUM: The cardiac silhouette is not enlarged. Postoperative changes seen in the mediastinum. LUNGS: No infiltrates, effusions or pneumothorax. OTHER: No free air under the diaphragm. IMPRESSION: No acute cardiopulmonary pathology Reviewed, dictated and finalized at location A.
--- NOTE | 2024-05-03 11:00 | ECG_ITS ---
Test Date: 2024-05-03 11:11:58 Measurements Intervals [place] Rate: 66 P: 53 CO: 154 QRS: 64 QRSD: 94 T: 67 QT: 380 QTc: 399 Interpretive Statements SINUS RHYTHM NORMAL ECG No previous ECG available for comparison Electronically Signed On 05-03-2024 11:13:27 CDT by Vern Best D.O.
--- NOTE | 2024-05-03 11:31 | PC.NURSE ---
Patient denies any chest pain or SOb at this time. patient states all symptoms have resolved
[2024-05-03 11:37] LABS: Basophils Percent Auto 0.6 % (0.2-1.2); Eosinophils Absolute Auto 0.1 K/mm3 (0-0.3); Eosinophils Percent Auto 2.1 % (0-4.4); Hemoglobin 11.1 g/dL (14.0-18.0); Immature Granulocyte Absolute 0.01 K/mm3 (0.00-0.031); Immature Granulocyte Percent A 0.3 % (0-0.5); Lymphocytes Absolute Auto 1.46 K/mm3 (0.9-3.2); Lymphocytes Percent Auto 44.1 % (18.3-44.2); Monocytes Absolute Auto 0.2 K/mm3 (0.1-0.6); Monocytes Percent Auto 7.3 % (2.6-8.5); Neutrophils Absolute Auto 1.5 K/mm3 (1.3-6.7); Neutrophils Percent Auto 45.6 % (45.5-73.1); Platelet Count Result 195 k/mm3 (150-375); Red Blood Count 4.11 M/mm3 (4.6-6.20); Red Cell Distribution Width 15.8 % (11.5-14.5); White Blood Count 3.3 K/mm3 (4.5-10.0)
[2024-05-03 11:51] LABS: Partial Thromboplastin Time 28.6 Seconds (22.3-36.8); Prothrombin Time 14.1 Seconds (11.1-14.7)
[2024-05-03 11:59] LABS: Alanine Aminotransferase 44 U/L (6-50); Albumin Level 4.6 g/dL (3.5-5.1); Alkaline Phosphatase 111 U/L (38-126); Anion Gap 11 mmol/L (4-12); Aspartate Amino Transferase 33 U/L (17-59); Bilirubin,Total 0.5 mg/dL (0.2-1.3); Blood Urea Nitrogen 14 mg/dL (9-20); Calcium 9.2 mg/dL (8.4-10.2); Carbon Dioxide 27 mmol/L (22-30); Chloride 98 mmol/L (98-107); Estimated CRCL calculation 85 ml/min; Estimated Glomerular Filt Rate > 60; Glucose 107 mg/dL (65-110); Lipase 52 U/L (23-300); Potassium 4.5 mmol/L (3.4-5.0); Sodium 136 mmol/L (137-145)
[2024-05-03 12:20] LABS: Troponin I < 0.012 ng/mL (0.000-0.034)
[2024-05-03 15:30] LABS: Troponin I < 0.012 ng/mL (0.000-0.034)
--- NOTE | 2024-05-03 15:39 | ED.CHESTPAIN ---
HPI - Chest Pain General Chief Complaint: Chest Pain Stated Complaint: chest pain Time Seen by Provider: 05/03/24 12:06 History of Present Illness HPI narrative: Patient is a 54-year-old male who presents ER with chest pain. Patient was in preop and he just received an IV with normal saline we began feel burning in his nose in a bad taste in his mouth. He then had tightness in his chest. This lasted 15 minutes. He is concerned may be a cardiac issue. He was sent here for further evaluation. Symptoms resolved on their own. He has no symptoms at this time. No history of heart disease. He does have history of aplastic anemia as well as colon cancer. He is supposed to have normal surgery today to biopsy an ulcer in his mouth to see if he could have an oropharyngeal cancer. Related Data Home Medications Medication Instructions Recorded Confirmed methylphenidate HCl 20 mg tablet 20 mg PO BID 05/03/21 07/25/22 cholecalciferol (vitamin D3) 1,250 08/23/22 mcg (50,000 unit) capsule Allergies Allergy/AdvReac Type Severity Reaction Status Date / Time No Known Allergies Allergy Verified 05/03/24 10:57 Review of Systems Review of Systems: All systems reviewed & are unremarkable except as noted in HPI and below Constitutional: Constitutional: Reports no additional constitutional complaints ENT: Reports system reviewed and no additional complaints, except as documented Cardiovascular: Cardiovascular: Reports chest pain, Denies rapid heart rate and Denies radiating jaw, neck or arm pain Respiratory: Respiratory: Reports no additional respiratory complaints Gastrointestinal: Gastrointestinal: Reports no additional gastrointestinal complaints Neurologic: Reports system reviewed and no additional complaints, except as documented PMFSH Past Medical History Medical History ADHD Anemia assoc w/anaplastic large cell lymphoma txd w/erythropoietin Colon cancer Smoker Social History Social History Smoking status: Never smoker Tobacco type: cigars Alcohol intake: former Substance use: never Substance use type: does not use Living arrangements: with family Spiritual care concerns: No Exam Narrative: GENERAL: Well-appearing, well-nourished, and in no acute distress. HEAD: Normocephalic, atraumatic. ENT: Mucous membranes moist. CHEST: Clear to auscultation. No respiratory distress. HEART: Regular rate and rhythm. Normal peripheral pulses. ABDOMEN: Soft, nontender, nondistended. EXTREMITIES: Normal range of motion. No edema. SKIN: Warm, dry, no rash. NEURO: NAlert and oriented x3. PSYCH: Normal mood and affect. Course Course Emergency Course: Chest pain-free. Troponin negative x2. Normal EKG. Patient appropriate for discharge home. Vital Signs Vital signs: Vital Signs Temperature 98 F 05/03/24 11:12 Pulse Rate 80 05/03/24 11:12 Respiratory Rate 16 05/03/24 11:12 Blood Pressure 153/87 H 05/03/24 11:12 Pulse Oximetry 100 05/03/24 11:12 Oxygen Delivery Room Air 05/03/24 11:12 Temperature 98 F 05/03/24 11:12 Pulse Rate 69 05/03/24 13:47 Respiratory Rate 14 05/03/24 13:47 Blood Pressure 137/92 H 05/03/24 13:01 Pulse Oximetry 100 05/03/24 13:47 Oxygen Delivery Room Air 05/03/24 11:30 MDM - Chest Pain Lab Data 05/03/24 11:31 05/03/24 11:31 Labs: Lab Results 05/03/24 05/03/24 Range/Units 11:31 14:40 WBC 3.3 L (4.5-10.0) K/mm3 RBC 4.11 L (4.6-6.20) M/mm3 Hgb 11.1 L (14.0-18.0) g/dL Hct 37.0 L (42.0-52.0) % MCV 90.0 (80-100) fl MCH 27.0 (26-34) pg MCHC 30.0 L (32-36) g/dl RDW 15.8 H (11.5-14.5) % Plt Count 195 (150-375) k/mm3 MPV 11.0 H (7.4-10.4) fl Immature Gran % (Auto) 0.3 (0-0.5) % Neut % (Auto) 45.6 (45.5-73.1) % Lymph % (Auto) 44.1 (18.3-44.2) % [place] % (Auto) 7.3 (2.6-8.5) %
== END 2024-05-03 15:49 | disposition home or self-care (01) ==
PROVIDERS: Emergency Medicine; Emergency Provider Emergency Medicine
DX: R07.9 Chest pain, unspecified (principal); F90.9 Attention-deficit hyperactivity disorder, unspecified type; Z85.038 Personal history of other malignant neoplasm of large intestine
CPT/HCPCS: 36415; 71046; 80053; 83690; 84484; 85025; 85610; 85730; 93005; 99284